=== PATIENT | male | born 1980 | race Caucasian/White ===

== ENCOUNTER → 2016-08-01 09:06 | Emergency (ER) | payer BC ==
[~2016-08-01 09:06] MED LIST: NS 0.9% 1000 ML* 1,000 ML IV ONE; Pantoprazole IV* 40 MG IV ONE; Sucralfate TAB* 1 GM PO ONE
[2016-08-01 10:16] LABS: Hematocrit 48 % (42-52); Hemoglobin 16.6 g/dl (14.0-18.0); Mean Corpuscular HGB Conc 35 g/dl (31-36); Mean Corpuscular Hemoglobin 30 pg (27-31); Mean Corpuscular Volume 87 fL (80-94); Mean Platelet Volume 9 um3 (7.4-10.4); Red Blood Count 5.52 10^6/ul (4.0-5.4); Red Cell Distribution Width 14 % (10.5-15); White Blood Count 5.7 10^3/ul (3.5-10.8)
[2016-08-01 11:01] LABS: ALT 47 U/L (7-52); Albumin 4.8 g/dL (3.2-5.2); Alkaline Phosphatase 107 U/L (34-104); Anion Gap 8 mmol/L (2-11); Blood Urea Nitrogen 12 mg/dL (6-24); CO2 Carbon Dioxide 23 mmol/L (22-32); Calcium 9.6 mg/dL (8.6-10.3); Chloride 105 mmol/L (101-111); EGFR African American 108.7 (>60); EGFR Non-African American 84.5 (>60); Globulin 4.3 g/dL (2-4); Glucose 124 mg/dL (70-100); Lipase < 10 U/L (11.0-82.0); Potassium 3.9 mmol/L (3.5-5.0); Sodium 136 mmol/L (133-145); Total Protein 9.1 g/dL (6.4-8.9)
[2016-08-01 11:21] LABS: AST 40 U/L (13-39)
[2016-08-01 12:00] VITALS: BP 135/85
--- NOTE | 2016-08-01 12:09 | ED ---
Rene, DoctorGabriela, scribed for Avinash Reid MD on 08/01/16 at 0937 . GI/ HPI - HPI Summary HPI Summary: 35 year old male arrived to [facility] c/o stomach discomfort and hematemesis beginning this morning at 0130. He reports waking up with diarrhea, and experiencing hematemesis shortly after. He describes his vomit as mixed with "bright-red blood," and reports that his diarrhea was "foamy and watery," but not black. He has also been experiencing bloating, some confusion, and blurry vision. Pt is a regular everyday drinker and sees Dr. Paz (PCP) in [place]. - History of Current Complaint Chief Complaint: EDGIBleed Time Seen by Provider: 08/01/16 09:23 Stated Complaint: VOMITING BLOOD Hx Obtained From: Patient Onset/Duration: Started Hours Ago Timing: Intermittent Severity: Moderate Current Severity: Moderate Associated Signs and Symptoms: Positive: Hematemesis, Nausea, Vomiting, Diarrhea , Other: - confusion, blurry vision, feeling bloated, stomach discomfort. Negative: Blood-Streaked Stool - Allergy/Home Medications Allergies/Adverse Reactions: Allergies Allergy/AdvReac Type Severity Reaction Status Date / Time Gabapentin Allergy Difficulty Verified 02/02/15 10:10 Breathing Environmental Allergies Allergy Intermediate Eyes Uncoded 02/02/15 10:10 Itchy/Swollen/Red/Watery PMH/Surg Hx/FS Hx/Imm Hx Endocrine/Hematology History: Denies: Hx Diabetes, Hx Thyroid Disease Cardiovascular History: Reports: Hx Hypertension Denies: Hx Pacemaker/ICD, Other Cardiovascular Problems/Disorders Respiratory History: Denies: Hx Asthma, Hx Chronic Obstructive Pulmonary Disease (COPD), Other Respiratory Problems/Disorders GI History: Reports: Hx Gastroesophageal Reflux Disease Denies: Hx Ulcer, Other GI Disorders History: Denies: Other Problems/Disorders Musculoskeletal History: Denies: Other Musculoskeletal History Sensory History: Denies: Hx Contacts or Glasses, Hx Hearing Aid Opthamlomology History: Denies: Hx Contacts or Glasses Neurological History: Denies: Other Neuro Impairments/Disorders Psychiatric History: Denies: Hx Panic Disorder - Surgical History Surgery Procedure, Year, and Place: MOLE REMOVED FROM [facility]. 05/24 RT WRIST CARPAL TUNNEL Hx Anesthesia Reactions: No Infectious Disease History: Denies: Hx Clostridium Difficile, Hx Hepatitis, Hx Human Immunodeficiency Virus (HIV), Hx of Known/Suspected MRSA, History Other Infectious Disease, Traveled Outside the [place] in Last 30 Days - Family History Known Family History: Positive: Other - No FHx of malignant hyperthermia, anesthesia reaction - Social History Occupation: Employed Full-time Alcohol Use: Weekly Alcohol Amount: 12 PER WEEK Substance Use Type: Reports: None Substance Use Comment - Amount & Last Used: CHEWS TOBACCO DAILY Smoking Status (MU): Never Smoked Tobacco Type: Smokeless Tobacco Review of Systems Negative: Fever Positive: Vomiting - hematemesis, Diarrhea, Nausea, Other - feeling bloated. Negative: Abdominal Pain - stomach "discomfort," but no pain Neurological: Other - blurry vision Psychological: Other - slight confusion All Other Systems Reviewed And Are Negative: Yes Physical Exam Triage Information Reviewed: Yes Vital Signs On Initial Exam: Initial Vitals Temp Pulse Resp BP Pulse Ox 97.6 F 93 18 164/100 99 08/01/16 09:15 08/01/16 09:15 08/01/16 09:15 08/01/16 09:15 08/01/16 09:15 Vital Signs Reviewed: Yes Appearance: Positive: Well-Appearing, No Pain Distress Skin: Positive: Warm, Skin Color Reflects Adequate Perfusion, Dry Head/Face: Positive: Normal Head/Face Inspection Eyes: Positive: Normal ENT: Positive: Normal ENT inspection Neck: Positive: Supple, Nontender Respiratory/Lung Sounds: Positive: Clear to Auscultation, Breath Sounds Present Cardiovascular: Positive: RRR Abdomen Description: Positive: Nontender, Soft Bowel Sounds: Positive: Present Musculoskeletal: Positive: Normal Neurological: Positive: Normal Psychiatric: Positive: Normal, Affect/Mood Appropriate Diagnostics - Vital Signs Vital Signs Temp Pulse Resp BP Pulse Ox 08/01/16 09:15 97.6 F 93 18 164/100 99 - Laboratory Lab Results: Lab Results 08/01/16 08/01/16 Range/Units 10:04 10:04 WBC 5.7 (3.5-10.8) 10^3/ul RBC 5.52 H (4.0-5.4) 10^6/ul Hgb 16.6 (14.0-18.0) g/dl Hct 48 (42-52) % MCV 87 (80-94) fL MCH 30 (27-31) pg MCHC 35 (31-36) g/dl RDW 14 (10.5-15) % Plt Count 181 (150-450) 10^3/ul MPV 9 (7.4-10.4) um3 Neut % (Auto) 67.6 (38-83) % Lymph % (Auto) 23.8 L (25-47) % [place] % (Auto) 7.4 (1-9) % Eos % (Auto) 0.1 (0-6) % Baso % (Auto) 1.1 (0-2) % Absolute Neuts (auto) 3.8 (1.5-7.7) 10^3/ul Absolute Lymphs (auto) 1.4 (1.0-4.8) 10^3/ul Absolute Monos (auto) 0.4 (0-0.8) 10^3/ul Absolute Eos (auto) 0 (0-0.6) 10^3/ul Absolute Basos (auto) 0.1 (0-0.2) 10^3/ul Absolute Nucleated RBC 0.01 10^3/ul Nucleated RBC % 0.1 Sodium 136 (133-145) mmol/L Potassium 3.9 (3.5-5.0) mmol/L Chloride 105 (101-111) mmol/L Carbon Dioxide 23 (22-32) mmol/L Anion Gap 8 (2-11) mmol/L BUN 12 (6-24) mg/dL Creatinine 1.00 (0.67-1.17) mg/dL Est GFR ( Amer) 108.7 (>60) Est GFR (Non-Af Amer) 84.5 (>60) BUN/Creatinine Ratio 12.0 (8-20) Glucose 124 H (70-100) mg/dL Calcium 9.6 (8.6-10.3) mg/dL Total Bilirubin 1.60 H (0.2-1.0) mg/dL AST 40 H (13-39) U/L ALT 47 (7-52) U/L Alkaline Phosphatase 107 H (34-104) U/L Total Protein 9.1 H (6.4-8.9) g/dL Albumin 4.8 (3.2-5.2) g/dL Globulin 4.3 H (2-4) g/dL Albumin/Globulin Ratio 1.1 (1-3) Lipase < 10 L (11.0-82.0) U/L Result Diagrams: 08/01/16 10:04 08/01/16 10:04 Lab Statement: Any lab studies that have been ordered have been reviewed, and results considered in the medical decision making process. Re-Evaluation - Re-Evaluation First Eval Re-Evaluation Time: 11:37 Comment: Discussed plan to discharge pt; he was agreeable. GIGU Course/Dx - Course Course Of Treatment: Mr. Lugo felt better after medications and I think this has to do with drinking a lot over the weekend which he admits to. His liver enzymes are slightly bumped and I recommended he not drink his usual daily 'couple of beers" and recheck with his PMD. - Diagnoses Provider Diagnoses: Gastritis Discharge - Discharge Plan Condition: Stable Disposition: HOME Prescriptions: Sucralfate TAB* [Carafate*] 1 gm PO QID #40 tab Patient Education Materials: Gastritis (ED) Referrals: Tito Paz MD [Primary Care Provider] - The documentation as recorded by the Doctor lea Tahera accurately reflects the service I personally performed and the decisions made by me, Avinash Reid MD.
== END | disposition home or self-care (01) ==
LOC: ED 09:06
DX: K29.70 Gastritis, unspecified, without bleeding (principal); I10 Essential (primary) hypertension; F17.220 Nicotine dependence, chewing tobacco, uncomplicated; F10.10 Alcohol abuse, uncomplicated
CPT/HCPCS: 36415; 80053; 83690; 85025; 96360; 96374; 99282; A9270-GY